=== PATIENT | female | born 1980 | race Caucasian/White ===

== ENCOUNTER → 2018-02-06 14:21 | Outpatient (CLI) | payer BC, SELFPAY ==
--- NOTE | 2018-02-06 14:26 | CT_ITS ---
STUDY: CT SOFT TISSUE NECK WITH CONTRAST REASON FOR EXAM: Female, 37 years old. Left subclavian mass RADIATION DOSAGE (If Supplied By Facility): CTDIvol = ( 21.37 ) mGy, DLP = ( 619.00 ) mGycm TECHNIQUE: The patient was scanned in a multi-detector CT scanner. High resolution transaxial imaging was performed following intravenous administration of 100mL ml of Isovue 300 contrast material. Sagittal and coronal images were reconstructed. Individualized dose optimization techniques were used for this CT. COMPARISON: None. FINDINGS: Normal bilateral parotid glands. 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 Normal bilateral parapharyngeal spaces. Normal bilateral carotid spaces. Normal bilateral sublingual and submandibular glands and spaces. Normal visualized nasopharynx. Normal retropharyngeal space. Normal perivertebral space. Normal visualized bilateral faucial tonsils. The visualized tongue, tongue base and oropharynx are normal. The visualized cervical lymph nodes (levels I-) are within normal size limits, and maintain normal morphology. There is no demonstrated solid or cystic mass lesion. There is no abnormal contrast enhancement. Normal epiglottis, bilateral vallecula and hypopharynx. The pre-epiglottic and paraglottic adipose spaces are normal. Normal visualized bilateral piriform sinuses, aryepiglottic folds, vocal cords, and arytenoid-cricoid articulations. Normal subglottic trachea. Normal bilateral lobes of the thyroid gland. Normal visualized pulmonary apices. Normal visualized paranasal sinuses. Normal visualized cervical spine. CT/Soft Tissue Neck WITH Contrast IMPRESSION: No evidence of neck mass or adenopathy. Electronically Signed: Juan Carlos Mejia MD at 4:16 EST Tel , Service support ,
--- OUTSIDE RECORDS SUMMARY | 2018-05-13 05:48 | XMS RPT_ITS | Continuity of Care Document ---
:1980 Author Organization [facility] Address [address] [facility] [address] [place] [address] Phone Care Team Providers Name Role Phone Breonna Weller CNP Unavailable Berkley Riley Unavailable Unavailable Unavailable Unavailable Problems Name Dates Details Anxiety (F41.9, 300.00) Status: Active BMI 40.0-44.9, adult (Z68.41, V85.41) Status: Active Fatigue (R53.83, 780.79) Status: Active Goiter (E04.9, 240.9) Status: Active Headache (R51, 784.0) Status: Active Hyperlipidemia (E78.5, 272.4) Comments: [facility] and ldl high. eat fast foods. no egg and cheese. skim milk. not eat alot red meat. Status: Active Neck mass (R22.1, 784.2) Comments: left Status: Active Nonsmoker (Z78.9, V49.89) Status: Active Obesity, unspecified (E66.9, 278.00) Comments: talk about diet. get rid of calories in drink and fast food. eat lean protine lots veggies. talkabout 21 day purification. Status: Active Palpitations (R00.2, 785.1) Status: Active Physical exam, routine (Z00.00, V70.0) Comments: talk to her about need pap. talkabout stretching openning since virgin and not use tampons. 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, but does not see anyone Status: Active Medications Name Dates Details No current medications Active CELEXA, 20MG (Oral Tablet) 1 (one) Tablet daily for 0 days Quantity: 30 {Tablet} Refills: 6 Ordered:16-Apr-2010 JAIME Rodrigues Start : 17-Nov-2009 End : 16-Apr-2010 Inactive CIPRO, 500MG (Oral Tablet) 1 Tablet bid for 0 days Quantity: 14 {Tablet} Refills: 0 Ordered:02-Nov-2009 JAIME Rodrigues Start : 08-Sep-2009 Inactive FLEXERIL, 10MG (Oral Tablet) 1 Tablet tid prn for 0 days Quantity: 20 {Tablet} Refills: 0 Ordered:16-Apr-2010 JAIME Rodrigues Start : 02-Nov-2009 End : 16-Apr-2010 Inactive Allergies and Adverse Reactions Name Dates Details No Known Drug Allergies (Allergy) Status: Active Past Medical History Name Dates Details Calcium kidney stone (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 ? infection, ?urge incont. ? diabetic and glucose in urine. will cath and check postvoid residual. 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 Status: Active Smoking Status Name Dates Details Never smoker Vital Signs Date Test Result Details :27 Temperature 98.3 f Pulse 82 /min Comments: Pattern: Regular Respiration Rate 16 /min Comments: Pattern: Unlabored O2 SAT 99 % Comments: Room air BP Systolic 124 mm[Hg] Comments: Patient Position: Sitting; Cuff Location: Left Arm; Cuff Size: Standard BP Diastolic 86 mm[Hg] Comments: Patient Position: Sitting; Cuff Location: Left Arm; Cuff Size: Standard Weight 248 lb Height 64 in Body Mass Index Calculated 42.57 kg/m2 Body Surface Area Calculated 2.14 m2 :34 Temperature 97.6 f Comments: Method: Temporal Pulse 100 /min Comments: Pattern: Regular Respiration Rate 18 /min Comments: Pattern: Unlabored O2 SAT 98 % Comments: Room air BP Systolic 114 mm[Hg] Comments: Patient Position: Sitting; Cuff Location: Left Arm; Cuff Size: Large BP Diastolic 78 mm[Hg] Comments: Patient Position: Sitting; Cuff Location: Left Arm; Cuff Size: Large Weight 227 lb Height 64 in Body Mass Index Calculated 38.96 kg/m2 Body Surface Area Calculated 2.06 m2 :52 Temperature 98.3 f Pulse 96 /min Comments: Pattern: Regular Respiration Rate 16 /min Comments: Pattern: Unlabored BP Systolic 108 mm[Hg] Comments: Patient Position: Sitting; Cuff Location: Left Arm; Cuff Size: Large BP Diastolic 80 mm[Hg] Comments: Patient Position: Sitting; Cuff Location: Left Arm; Cuff Size: Large :40 Temperature 98.2 f Comments: Method: Oral Pulse 78 /min Comments: Pattern: Regular Respiration Rate 18 /min Comments: Pattern: Unlabored BP Systolic 114 mm[Hg] Comments: Patient Position: Sitting; Cuff Location: Left Arm; Cuff Size: Large BP Diastolic 76 mm[Hg] Comments: Patient Position: Sitting; Cuff Location: Left Arm; Cuff Size: Large Weight 218 lb :58 Temperature 97.6 f Comments: Method: Oral Pulse 76 /min Comments: Pattern: Regular Respiration Rate 18 /min Comments: Pattern: Unlabored BP Systolic 108 mm[Hg] Comments: Patient Position: Sitting; Cuff Location: Left Arm; Cuff Size: Standard BP Diastolic 74 mm[Hg] Comments: Patient Position: Sitting; Cuff Location: Left Arm; Cuff Size: Standard Weight 218 lb :46 Temperature 98.2 f Comments: Method: Oral Pulse 78 /min Comments: Pattern: Regular Respiration Rate 18 /min Comments: Pattern: Unlabored BP Systolic 118 mm[Hg] Comments: Patient Position: Sitting; Cuff Location: Left Arm; Cuff Size: Standard BP Diastolic 78 mm[Hg] Comments: Patient Position: Sitting; Cuff Location: Left Arm; Cuff Size: Standard Weight 218 lb :33 Temperature 98.2 f Comments: Method: Oral Pulse 72 /min Comments: Pattern: Regular Respiration Rate 18 /min Comments: Pattern: Unlabored BP Systolic 116 mm[Hg] Comments: Patient Position: Sitting; Cuff Location: Left Arm; Cuff Size: Standard BP Diastolic 78 mm[Hg] Comments: Patient Position: Sitting; Cuff Location: Left Arm; Cuff Size: Standard Weight 219 lb Results Date Description Value Details :22 Glucose (70260) Comments: today; PATIENT NOT FASTINGPERFORMED BY: [facility]It[facility] HospitalFletms0448 [facility] [id number] Glucose, Serum 76 mg/dL (Normal) Range: 65-99 :22 T4, FREE (THYROXINE) Comments: today; PATIENT NOT FASTINGPERFORMED BY: VerbalizeItMargaret [place] [id number] [facility] [id number] Information: [id number] ([id number]) T4,Free(Direct) 1.13 ng/dL (Normal) Range: 0.82-1.77 :22 TSH (41970) Comments: today; PATIENT NOT FASTINGPERFORMED BY: [facility] HospitalIyiavg8488 [facility] [id number] TSH 1.290 {uIU/mL} (Normal) Range: 0.450-4.500 :53 METABOLIC PANEL, COMPREHENSIVE Comments: PATIENT NOT FASTINGPERFORMED BY: [facility] [id number] [facility] [id number] (23154) ALT (SGPT) 16 [iU]/L (Normal) Range: 0-40 AST (SGOT) 19 [iU]/L (Normal) Range: 0-40 Alkaline Phosphatase, S 93 [iU]/L (Normal) Range: 25-150 Bilirubin, Total 0.8 mg/dL (Normal) Range: 0.0-1.2 A/G Ratio 1.3 (Normal) Range: 1.1-2.5 Globulin, Total 3.4 g/dL (Normal) Range: 1.5-4.5 Albumin, Serum 4.3 g/dL (Normal) Range: 3.5-5.5 Protein, Total, Serum 7.7 g/dL (Normal) Range: 6.0-8.5 Calcium, Serum 9.8 mg/dL (Normal) Range: 8.7-10.2 Carbon Dioxide, Total 21 mmol/L (Normal) Range: 20-32 Chloride, Serum 101 mmol/L (Normal) Range: 97-108 BUN/Creatinine Ratio 8 (Normal) Range: 8-27 Potassium, Serum 4.8 mmol/L (Normal) Range: 3.5-5.2 Sodium, Serum 140 mmol/L (Normal) Range: 135-145 eGFR AfricanAmerican >59 mL/min/1.73 Comments: Note: Persistent reduction for 3 months or more in an eGFR<60 mL/min/1.73 m2 defines CKD. Patients with eGFR values>/=60 mL/min/1.73 m2 may also have CKD if evidence of persistentproteinuria is (Normal) present. Additional information may be found [email or web address]. eGFR >59 mL/min/1.73 (Normal) Creatinine, Serum 0.85 mg/dL (Normal) Range: 0.57-1.00 BUN 7 mg/dL (Normal) Range: 5-26 Glucose, Serum 89 mg/dL (Normal) Range: 65-99 02-Nov-20098:53 CBC WITH MANUAL DIFF Comments: PATIENT NOT FASTINGPERFORMED BY: [facility]CoEast [facility] HospitalGqmqji4288 [facility] [id number] Information: [id number] ([id number]) Immature Grans (Abs) 0.0 {x10E3/uL} (Normal) Range: 0.0-0.1 Immature Granulocytes 0 % (Normal) Range: 0-1 Baso (Absolute) 0.0 {x10E3/uL} (Normal) Range: 0.0-0.2 Eos (Absolute) 0.2 {x10E3/uL} (Normal) Range: 0.0-0.4 Monocytes(Absolute) 0.6 {x10E3/uL} (Normal) Range: 0.1-1.0 Lymphs (Absolute) 2.2 {x10E3/uL} (Normal) Range: 0.7-4.5 Neutrophils (Absolute) 5.4 {x10E3/uL} (Normal) Range: 1.8-7.8 Basos 0 % (Normal) Range: 0-3 Eos 3 % (Normal) Range: 0-7 Lymphs 26 % (Normal) Range: 14-46 Monocytes 7 % (Normal) Range: 4-13 Neutrophils 64 % (Normal) Range: 40-74 MCHC 33.9 g/dL (Normal) Range: 32.0-36.0 Platelets 376 {x10E3/uL} (Normal) Range: 140-415 RDW 12.7 % (Normal) Range: 11.7-15.0 MCH 29.0 pg (Normal) Range: 27.0-34.0 MCV 86 fL (Normal) Range: 80-98 Hematocrit 41.6 % (Normal) Range: 34.0-44.0 Hemoglobin 14.1 g/dL (Normal) Range: 11.5-15.0 RBC 4.86 {x10E6/uL} (Normal) Range: 3.80-5.10 WBC 8.5 {x10E3/uL} (Normal) Range: 4.0-10.5 :53 TSH ([id number]) Comments: PATIENT NOT FASTINGPERFORMED BY: [facility]Co[facility] HospitalLjekij9352 [facility] [id number] TSH 1.510 {uIU/mL} (Normal) Range: 0.450-4.500 40-Vpx-964820:38 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 PELVIC ULTRASOUND - COMPLETE TECHNIQUE:Transabdominal and Transvaginal COMPARISON:None. FINDINGS:Normal urinary bladder contour, without focal or diffuse wal lthickening. There are no bladder calculi or intracystic masses. Normal uterine size, measuring 7.46 cm in maximum craniocaudaldimension. There are no myometrial masses. Normal endometrial thickness lilly suring 1.6 mm. Normal right ovary measuring 3.38 cm. There are no cystic or solidadnexal masses. Normal left ovary measuring 2.56 cm. There are no cystic or solidadnexal masses. There is no free fluid w ithin the pelvis. IMPRESSION:Normal exam as viewed. Reported By: DAPHNE VASQUEZ D.O. 53-Plt-510227:38 POST VOID RESIDUAL BLADDER Radiology Report See Note (Normal) Comments: Exam Number: [id number] CLINICAL:This is a 29-year-old female patient with history of urinaryfrequency. BLADDER ULTRASOUND TECHNIQUE:Multiple views of the lateral and third post void imaging wasperformed as well. COMPARISON:None. FINDINGS:Normally distended urinary bladder containing 157 cc. The postvoidbladder contains 109.1 cc. This is in keeping with a moderate postvoid residual. Normal bladder wal l with no focal or diffuse wall thickening ormass. No bladder calculi or intracystic masses. Normal pericystic structures with no pelvic masses or free fluid. IMPRESSION:Moderate amount of postvoid residual. Reported By: ILIA SNELL Plan of Care Name Dates Details Instructions BMI 40.0-44.9, adult : Follow up in 2 weeks Indication: BMI 40.0-44.9, adult Neck mass : Self breast exam Indication: Neck mass Nonsmoker : Eprescribed prescriptions (G8553) Indication: Nonsmoker Hyperlipidemia : High Cholesterol (Hypercholesterolemia) *: diet Indication: Hyperlipidemia Palpitations : *palpitation discusssion Indication: Palpitations Planned Observations CALCIFEDIOL (84343)Indication: SCLEROSIS, MULTIPLE (340.) On: :31 Request T4, FREE (THYROXINE) (23858)Indication: Neck mass On: :30 Request T3, FREE (TRIDOTHYRONINE) (59714)Indication: Neck mass On: :30 Request TSH ([id number])Indication: Neck mass On: :30 Request Lipid Panel (32886)Indication: Neck mass On: :30 Request Metabolic Panel, Comprehensive (10293)Indication: Neck mass On: :30 Request CBC & PLATELETS (AUTO) ([id number])Indication: Neck mass On: 5-Ube-879652:29 Request LIPID PANEL (04414)Indication: Hyperlipidemia On: 28-Oct-20148:09 Request Comments: in six months (approximately) URINE OLIVER CULTURE-IDENTIFICATN (47725)Indication: Urinary frequency On: 98-Kgb-633425:03 Request URINALYSIS (77867)Indication: Urinary frequency On: 59-Ozs-639631:02 Request Urinalysis, Office (30863)Indication: Urinary frequency On: 51-Eya-820126:39 Request Planned Encounters Medical; 2 Week FU - On: 10-Feb-2018 15:30 [facility] Nithin OBREGON, Breonna Weller CNP, Breonna Chappell Planned Procedures CT SOFT TISSUE NECK WO/W CON On: 30-Jan-2018 Intent ([id number])By: Breonna Weller CNP, CNP, Mary E TD VACCINE ADULT ([id number])By: Juan On: 28-Oct-2014 Intent Ghada DEGROOT Ear Irrigation (75107)By: Judd TERRAZAS, On: 20-Apr-2010 Intent Cathie Trent Comments: performed by melly without difficulty Wax CurettesBy: Ghada Martinez MD On: 16-Apr-2010 Intent Ear Irrigation (72997)By: Juan On: 16-Apr-2010 Intent Ghada DEGROOT Holter Moniter ([id number])By: Juan On: 02-Nov-2009 Intent Ghada DEGROOT EKG (00200)By: JAIME Rodrigues On: 02-Nov-2009 Intent Ultrasound - postvoid residualBy: On: 08-Sep-2009 Intent Ghada Martinez MD Ultrasound - PelvisBy: Juan DEGROOT, On: 08-Sep-2009 Intent Ghada Moore Comments: need to see postvoid residual and do rest of pelvis if can see. Instructions Name Dates Details Nonsmoker : How to access health information online Indication: Nonsmoker Nonsmoker : How to access health information online - Detail Indication: Nonsmoker Nonsmoker : Patient Instructions Indication: Nonsmoker Hyperlipidemia : How to access health information online Indication: Hyperlipidemia Hyperlipidemia : How to access health information online - Detail Indication: Hyperlipidemia Hyperlipidemia : Patient Instructions Indication: Hyperlipidemia Encounters Office Visit On: 30-Jan-2018 13:26 Encounter Reason: new patient female physical - Last seen more than 1 year ago. General health: feels well with minor complaints (lump on neck), has good energy level and is sleeping poorly (restless). The patient's appe End: 30-Jan-2018 14:33 tite is normal. Nutrition: inappropriate diet. Exercises 0 days per week. Sleeps on average 5 (5-6) hours per night. Normal bowel and bladder habits. Safety measures include appropriate use of safety be lts and home smoke detectors. There are no current emotional problems., [ADDITIONAL REASON] Lumps - The onset of the lumps has been acute. Note for Lumps: left side of ne ck. this has been here for couple months, not wt loss has wt gain. Occasionally has pain, Encounter Diagnosis: Nonsmoker, BMI 40.0-44.9, adult, SCLEROSIS, MULTIPLE (340.), Neck mass [facility] Office Visit On: 28-Oct-2014 7:34 Encounter Reason: Physical female exam - Last seen more than 1 year ago. General health: feels well with minor complaints and has decreased energy level. The patient's appetite is normal. Nutrition: normal/adequate. Exer End: 28-Oct-2014 8:12 cises 1 days per week. Sleeps on average 5 hours per night. Normal bowel and bladder habits. Safety measures include appropriate use of safety belts and home smoke detectors. There are no current emotio nal problems. screening, Pap smear (has never had one ) and screening, visual acuity (wears glasses over 3 years ago ).Encounter Diagnosis: Hyperlipidemia, PHYSICAL EXAM, ROUTINE (V70.0), Obesity,unspecified (278.00), Goiter [facility] Office Visit On: 20-Apr-2010 7:48 Encounter Reason: Follow up acute care visit - The patient feels the same. Patient has been compliant with instructions. Current medication use: no side effects and compliant with dosing regimen. Patient sleeps 4 hours p End: 20-Apr-2010 8:18 er night. The medical issues the patient is following up for include All identified problems below and other (cerumen impaction in right ear). Note for Follow up acute care visit: Pt was in friday and seen DB for this and was unable to get the impaction out so pt was instructed to use debrox and come back in today to see if we can get it out. Pt states its starting to bother her now, discomfort.Encounter Diagnosis: Cerumen impaction (380.4) [facility] Office Visit On: 16-Apr-2010 9:40 Encounter Reason: Flu like symptoms - The onset of the flu like symptoms has been acute and they have been occurring in an intermittent pattern for 4 days. The course has been constant. The flu like symptoms are described as mild. End: 16-Apr-2010 10:13 Encounter Diagnosis: Gastroenteritis (558.9), Dizziness(780.4), Cerumen impaction (380.4) [facility] Office Visit On: 17-Nov-2009 9:58 Encounter Reason: Follow up acute care visit - The patient feels the same. Patient has been compliant with instructions. Patient sleeps 7 hours per night. Impact of disease: emotional impact-mild. Nutrition: balanced End: 17-Nov-2009 10:38 t and supplemental vitamins. The medical issues the patient is following up for include other (palpatations headache and fatigue). Encounter Diagnosis: Anxiety (300.00), Palpitations(785.1), Headache (784.0) [facility] Office Visit On: 02-Nov-2009 7:46 Encounter Diagnosis: Palpitations(785.1), Headache (784.0), Fatigue (780.79) End: 02-Nov-2009 8:26 [facility] Phone Encounter On: 08-Sep-2009 16:00 [facility] End: 08-Sep-2009 16:02 Office Visit On: 08-Sep-2009 11:33 Encounter Reason: UTI - The urinary symptoms are described as painful urination ,frequency and flank pain. The symptoms have been constant. Encounter Diagnosis: Urinary frequency (788.41) End: 08-Sep-2009 13:03 [facility] Payers Malena COFFMAN/Kayden Saldivar; a guarantor
--- OUTSIDE RECORDS SUMMARY | 2018-05-13 05:48 | XMS RPT_ITS | Continuity of Care Document ---
:1980 Author Organization [facility] Address [address] [facility] [address] [place] [address] Phone Care Team Providers Name Role Phone Breonna Weller CNP Unavailable Gravius, Dang Unavailable Unavailable Unavailable Unavailable Problems Name Dates Details Anxiety (F41.9, 300.00) Status: Active BMI 40.0-44.9, adult (Z68.41, V85.41) Status: Active Fatigue (R53.83, 780.79) Status: Active Goiter (E04.9, 240.9) Status: Active Headache (R51, 784.0) Status: Active Hyperlipidemia (E78.5, 272.4) Comments: [facility] and ldl high. eat fast foods. no egg and cheese. skim milk. not eat alot red meat.Need choles med but not until D comes up more or will get cramps, Status: Active Low vitamin D level (R79.89, 790.6) Status: Active Neck mass (R22.1, 784.2) Comments: CT done on the soft tissue is was read as normal Status: Active Nonsmoker (Z78.9, V49.89) Status: Active [...] but does not see anyone Status: Active Sore throat (J02.9, 462) Status: Active Tachycardia (R00.0, 785.0) Status: Active Viral illness (B34.9, 079.99) Comments: will follow up in 3 days, off work, Status: Active Medications Name Dates Details No current medications Active Vitamin D3 Ultra Potency 74200 UNIT Oral Tablet 1 (one) Tablet daily for 0 days Quantity: 30 {Tablet} Refills: 0 Ordered:10-Feb-2018 Nithin OBREGON, Breonna De La Cruz CNP, Sailaja Start : 10-Feb-2018 Active CELEXA, 20MG (Oral Tablet) 1 (one) [...] Procedure Dates Details TDAP VACCINE >7 IM (90343) Date: 28-Oct-2014 Completed 28-Oct-2014 Date Value Details 06-Feb-2018 Soft Tissue Neck WITH Contrast Result: Comments: See Note; NOTES: [facility] Imaging Services [address] [place] [address] Soft Tissue Neck WITH Contrast MR#: [id number] Acct: [id number] Name: CHANDA SALDIVAR ep #: [id number] : 1980 F 37 From: Juan Carlos Mejia MD PCP: Breonna eWller NP Status: REG CLI Study: Soft Tissue Neck WITH Contrast Date of Exam: 02/06/18 Exam# [id number] Ordering Dr: Breonna Weller TARIFF INSPECTOR-C STUDY: CT SOFT TISSUE NECK WITH CONTRAST REASON FOR EXAM: Female, 37 years old. Left subclavian mass RADIATION DOSAGE (If Supplied By Facility): CTDIvol = ( 21.37 ) mGy, DLP = ( 619.00 ) mGycm TECHNIQUE: The patient was scanned in a multi-detector CT scanner. High resolution transaxial imaging was performed following intravenous administration of 100mL ml of Isovue 300 contrast material. Sag ittal and coronal images were reconstructed. Individualized dose optimization techniques were used for this CT. COMPARISON: None. FINDINGS: Normal bilateral paroti d glands. 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 Normal bilateral parapharyngeal spaces. Normal bilateral carotid spaces. Normal bilateral sublingual and submandibular glands and spaces. Normal visualize d nasopharynx. Normal retropharyngeal space. Normal perivertebral space. Normal visualized bilateral faucial tonsils. The visualized tongue, tongue base and oropharynx are normal. The visualized cervi lino lymph nodes (levels I-) are within normal size limits, and maintain normal morphology. There is no demonstrated solid or cystic mass lesion. There is no abnormal contrast enhancement. Normal epig lottis, bilateral vallecula and hypopharynx. The pre-epiglottic and paraglottic adipose spaces are normal. Normal visualized bilateral piriform sinuses, aryepiglottic folds, vocal cords, and arytenoid-c ricoid articulations. Normal subglottic trachea. Normal bilateral lobes of the thyroid gland. Normal visualized pulmonary apices. Normal visualized paranasal sinuses. Normal visualized cervical spine. CT/Soft Tissue Neck WITH Contrast IMPRESSION: No evidence of neck mass or adenopathy. Electronically Signed: Juan Carlos Mejia MD a t 4:16 EST Tel , Service support , CC: Breonna Weller NP Tool Analyst: Signed Immunization Name Dates Details Tdap (7 years [...] smoker Vital Signs Date Test Result Details :17 Temperature 97 f Comments: Method: Temporal Pulse 128 /min Comments: Pattern: Regular Respiration Rate 16 /min Comments: Pattern: Unlabored O2 SAT 98 % Comments: Room air BP Systolic 110 mm[Hg] Comments: Patient Position: Sitting; Cuff Location: Left Arm; Cuff Size: Standard BP Diastolic 84 mm[Hg] Comments: Patient Position: Sitting; Cuff Location: Left Arm; Cuff Size: Standard Weight 248 lb Height 64 in Body Mass Index Calculated 42.57 kg/m2 Body Surface Area Calculated 2.14 m2 :27 Temperature 98.3 f Pulse 82 /min [...] 219 lb Results Date Description Value Details :06 CALCIFEDIOL (88959) Comments: PATIENT WAS FASTINGPERFORMED BY: [place] [id number] Vitamin D, 25-Hydroxy 6.8 ng/mL (Abnormal) Range: 30.0-100.0 Comments: Vitamin D deficiency has been defined by the [place] and an Endocrine Society practice guideline as alevel of serum 25-OH vitamin D less than 20 ng/mL (1,2).The Endocrine Society went on to further define vitamin Dinsufficiency as a level between 21 and 29 ng/mL (2).1. IOM ([place] [employer]). 2010. Dietary reference intakes for calcium and D. [place]: The National Academies Press.2. Angela MF, Janey HARLEY, Warren WILEY, et al. Evaluation, treatment, and prevention of vitamin D deficiency: an Endocrine Society clinical practice guideline. JCEM. 2010; 96(7):1911-30. :06 T4, FREE (THYROXINE) (04356) Comments: PATIENT WAS FASTINGPERFORMED BY: [employer] [place] [id number] T4,Free(Direct) 1.25 ng/dL (Normal) Range: 0.82-1.77 :06 T3, FREE (TRIDOTHYRONINE) (74334) Comments: PATIENT WAS FASTINGPERFORMED BY: [employer]Dublin [place] [id number] Triiodothyronine (T3), Free 2.5 pg/mL (Normal) Range: 2.0-4.4 :06 TSH (22388) Comments: PATIENT WAS FASTINGPERFORMED BY: [facility] [facility] [id number] TSH 0.877 {uIU/mL} (Normal) Range: 0.450-4.500 :06 Lipid Panel (52630) Comments: PATIENT WAS FASTINGPERFORMED BY: [facility] [facility] [id number] LDL/HDL Ratio 5.5 {ratio} (Abnormal) Range: 0.0-3.2 Comments: LDL/HDL Ratio Men Women 1/2 Avg.Risk 1.0 1.5 Av g.Risk 3.6 3.2 2X Avg.Risk 6.2 5.0 3X Avg.Risk 8.0 6.1 Comment: LDLCOM (Normal) Comments: Possible Familial Hypercholesterolemia. FH should be suspected whenfasting LDL cholesterol is above 189 mg/dL or non-HDL cholesterolis above 219 mg/dL. A family history of high cholesterol and heartdise ase in 1st degree relatives should be collected. J Clin Zsmcxms0727;5:133-140 LDL Cholesterol Calc 191 mg/dL (Abnormal) Range: 0-99 VLDL Cholesterol Lino 43 mg/dL (Abnormal) Range: 5-40 HDL Cholesterol 35 mg/dL (Abnormal) Triglycerides 213 mg/dL (Abnormal) Range: 0-149 Cholesterol, Total 269 mg/dL (Abnormal) Range: 100-199 :06 Metabolic Panel, Comprehensive Comments: PATIENT WAS FASTINGPERFORMED BY: [facility] [facility] [id number] (18814) ALT (SGPT) 21 [iU]/L (Normal) Range: 0-32 AST (SGOT) 23 [iU]/L (Normal) Range: 0-40 Alkaline Phosphatase 75 [iU]/L (Normal) Range: 39-117 Bilirubin, Total 0.4 mg/dL (Normal) Range: 0.0-1.2 A/G Ratio 1.4 (Normal) Range: 1.2-2.2 Globulin, Total 3.1 g/dL (Normal) Range: 1.5-4.5 Albumin 4.3 g/dL (Normal) Range: 3.5-5.5 Protein, Total 7.4 g/dL (Normal) Range: 6.0-8.5 Calcium 9.0 mg/dL (Normal) Range: 8.7-10.2 Carbon Dioxide, Total 21 mmol/L (Normal) Range: 20-29 Chloride 101 mmol/L (Normal) Range: 96-106 Potassium 4.5 mmol/L (Normal) Range: 3.5-5.2 Sodium 138 mmol/L (Normal) Range: 134-144 BUN/Creatinine Ratio 12 (Normal) Range: 9-23 eGFR If Africn Am 121 mL/min/1.73 (Normal) eGFR If NonAfricn Am 105 mL/min/1.73 (Normal) Creatinine 0.74 mg/dL (Normal) Range: 0.57-1.00 BUN 9 mg/dL (Normal) Range: 6-20 Glucose 80 mg/dL (Normal) Range: 65-99 4-Kxw-339309:06 CBC & PLATELETS (AUTO) (18232) Comments: PATIENT WAS FASTINGPERFORMED BY: [facility]Car[facility] [id number] Platelets 442 {x10E3/uL} (Abnormal) Range: 150-379 RDW 14.1 % (Normal) Range: 12.3-15.4 MCHC 33.8 g/dL (Normal) Range: 31.5-35.7 MCH 27.4 pg (Normal) Range: 26.6-33.0 MCV 81 fL (Normal) Range: 79-97 Hematocrit 36.1 % (Normal) Range: 34.0-46.6 Hemoglobin 12.2 g/dL (Normal) Range: 11.1-15.9 RBC 4.45 {x10E6/uL} (Normal) Range: 3.77-5.28 WBC 9.3 {x10E3/uL} (Normal) Range: 3.4-10.8 :22 Glucose (66503) Comments: today; PATIENT NOT FASTINGPERFORMED BY: RFMicronLea Regional Medical CenterGbhqvs6431 ImmuneWorks [facility] HospitalCap[facility]allyCar[facility] [id number] Glucose, Serum 76 mg/dL (Normal) Range: 65-99 :22 T4, FREE (THYROXINE) Comments: today; PATIENT NOT FASTINGPERFORMED BY: [facility] [facility] [id number] Information: [id number] (44564) T4,Free(Direct) 1.13 ng/dL (Normal) Range: 0.82-1.77 :22 TSH (54791) Comments: today; PATIENT NOT FASTINGPERFORMED BY: [facility] [facility] [id number] TSH 1.290 {uIU/mL} (Normal) Range: 0.450-4.500 :53 METABOLIC PANEL, COMPREHENSIVE Comments: PATIENT NOT FASTINGPERFORMED BY: [facility] [facility] [id number] (18677) ALT (SGPT) 16 [iU]/L (Normal) Range: 0-40 [...] MANUAL DIFF Comments: PATIENT NOT FASTINGPERFORMED BY: MARCIE [facility] Sfmrat[address] [facility] [id number] Information: [id number] (83086) Immature Grans (Abs) 0.0 {x10E3/uL} (Normal) Range: [...] 8.5 {x10E3/uL} (Normal) Range: 4.0-10.5 :53 TSH (36170) Comments: PATIENT NOT FASTINGPERFORMED BY: MARCIE [facility] Boeuhz[address] [facility] [id number] TSH 1.510 {uIU/mL} (Normal) Range: 0.450-4.500 :38 PELVIC TARIFF INSPECTOR WITH ARTERIAL FLOW Radiology Report See Note (Normal) Comments: Exam Number: [id number] CLINICAL:Pelvic pain. PELVIC ULTRASOUND - COMPLETE TECHNIQUE:Transabdominal [...] as viewed. Reported By: DAPHNE VASQUEZ D.O. :38 POST VOID RESIDUAL BLADDER Radiology Report See Note (Normal) Comments: Exam Number: [id number] CLINICAL:This is a 29-year-old female patient with [...] Plan of Care Name Dates Details Instructions Nonsmoker : Follow up tomorrow, as needed Indication: Nonsmoker Neck mass : Reviewed Lab Indication: Neck mass Nonsmoker : Eprescribed prescriptions (G8553) Indication: Nonsmoker BMI 40.0-44.9, adult : Follow up in 2 weeks Indication: BMI 40.0-44.9, adult Neck mass : Self breast exam Indication: Neck mass Nonsmoker : Eprescribed prescriptions (G8553) Indication: Nonsmoker Hyperlipidemia : High Cholesterol (Hypercholesterolemia) *: diet Indication: Hyperlipidemia Palpitations : *palpitation discusssion Indication: Palpitations Planned Observations Metabolic Panel, Comprehensive (41634)Indication: Hyperlipidemia On: 57-Ezw-256765:23 Request LIPID PANEL (81849)Indication: Hyperlipidemia On: 37-Ylh-889724:21 Request CALCIFEDIOL (98799)Indication: Neck mass On: 63-Mgc-389127:19 Request CALCIFEDIOL (85073)Indication: Low vitamin D level On: 30-Yhc-019817:25 Request LIPID PANEL (84862)Indication: Hyperlipidemia On: 89-Xbe-194953:24 Request Influenza A&B Viral Culture (92807)Indication: Sore throat On: 74-Ncx-688898:32 Request Rapid Flu (25136 x 2)Indication: Sore throat On: 08-Clc-079300:13 Request Rapid Strep Test, Office (63840)Indication: Sore throat On: 32-Obd-139744:12 Request LIPID PANEL (56863)Indication: Hyperlipidemia On: :09 Request Comments: in six months (approximately) URINE OLIVER CULTURE-IDENTIFICATN (37685)Indication: Urinary frequency On: :03 Request URINALYSIS (25956)Indication: Urinary frequency On: :02 Request Urinalysis, Office (37575)Indication: Urinary frequency On: 09-Ymt-596105:39 Request Planned Procedures ELECTROCARDIOGRAM, COMPLETE (ECG) On: 10-Feb-2018 Intent (96187)By: Breonna Weller CNP, CNP, Comments: sinus tach Sailaja CT NECK W CON (25528)By: Nithin OBREGON, On: 05-Feb-2018 Intent Breonna Sanchez CNP CT SOFT TISSUE NECK WO/W CON (23535)By: On: 30-Jan-2018 Intent Breonna Weller CNP, CNP, Mary E TD VACCINE ADULT (72841)By: Juan DEGROOT, On: 28-Oct-2014 Intent Ghada Moore Ear Irrigation (13708)By: Judd TERRAZAS, On: 20-Apr-2010 Intent Cathie Trent Comments: performed by melly without difficulty Wax CurettesBy: Ghada Martinez MD On: 16-Apr-2010 Intent Ear Irrigation (93376)By: Juan DEGROOT, On: 16-Apr-2010 Intent Ghada Moore Holter Moniter (53614)By: Juan DEGROOT, On: 02-Nov-2009 Intent Ghada Moore EKG (52373)By: JAIME Rodrigues On: 02-Nov-2009 Intent Ultrasound - postvoid residualBy: On: 08-Sep-2009 Intent Ghada Martinez MD Ultrasound - PelvisBy: Ghada Martinez MD On: 08-Sep-2009 Intent Teresa Comments: need to see postvoid residual and do rest of pelvis if can see. Instructions Name Dates Details Nonsmoker : How to access health information online Indication: Nonsmoker Nonsmoker : How to access health information online - Detail Indication: Nonsmoker Nonsmoker : Patient Instructions Indication: Nonsmoker Nonsmoker : How to access health information online Indication: Nonsmoker Nonsmoker : How to access health information online - Detail Indication: Nonsmoker Nonsmoker : Patient Instructions Indication: Nonsmoker Hyperlipidemia : How to access health information online Indication: Hyperlipidemia Hyperlipidemia : How to access health information online - Detail Indication: Hyperlipidemia Hyperlipidemia : Patient Instructions Indication: Hyperlipidemia Encounters Office Visit On: 10-Feb-2018 15:14 Encounter Reason: Follow up tests - Diagnostic tests include CT scan (neck). Date: (02/06)., [ADDITIONAL REASON] Cold Symptoms - Symptoms include sneezing, nasal congestion, runny nose, postnas End: 10-Feb-2018 16:48 al drainage, sore throat, dry cough, facial pressure and headache. Onset was day(s) ago (2- worse in 24 hours). Note for Cold symptoms: cold last 24 hrs and joint painEars stuffed up Encounter Diagnosis: BMI 40.0-44.9, adult, Nonsmoker, SCLEROSIS, MULTIPLE (340.), Sore throat, Neck mass, Low vitamin D level, Hyperlipidemia, Tachycardia, Viral illness [facility] Annotation/Addendum On: 05-Feb-2018 11:36 Encounter Diagnosis: Neck mass End: 05-Feb-2018 11:39 [facility] Office Visit On: 30-Jan-2018 13:26 Encounter Reason: [...]
--- OUTSIDE RECORDS SUMMARY | 2018-05-13 05:48 | XMS RPT_ITS ---
:1980 Author Organization [facility] Care Team Providers Name Role Phone Breonna Weller Attending Unavailable Nithin, Breonna Consulting Unavailable Nithin, Breonna Referring Unavailable Breonna Weller Attending Unavailable Nithin, Breonna Referring Unavailable Breonna Weller Primary Care Unavailable Purpose Purpose PROBLEMS PROBLEMS No Problem Records FoundPROCEDURES PROCEDURES No Procedure Records FoundVITAL SIGNS VITAL SIGNS No Vital Signs Records FoundRESULTS RESULTS SOFT TISSUE NECK WITH Observed: 02/06/2018 Status: F Source: ATIF CONTRAST 2:27 PM [facility] Imaging Services [address] [place] [address] Soft Tissue Neck WITH Contrast MR#: [id number] Acct: [id number] Name: ADOLFO SALDIVAR Rep #: [id number] : 1980 F 37 From: Juan Carlos Mejia MD PCP: Breonna Weller NP Status: REG CLI Study: Soft Tissue Neck WITH Contrast Date of Exam: 02/06/18 Exam# [id number] Ordering Dr: Breonna Weller CAFETERIA TEAM LEADER-C STUDY: CT SOFT TISSUE NECK WITH CONTRAST REASON FOR EXAM: Female, 37 years old. Left subclavian mass RADIATION DOSAGE (If Supplied By Facility): CTDIvol = ( 21.37 ) mGy, DLP = ( 619.00 ) mGycm TECHNIQUE: The patient was scanned in a multi-detector CT scanner. High resolution transaxial imaging was performed following intravenous administration of 100mL ml of Isovue 300 contrast material. Sagittal and coronal images were reconstructed. Individualized dose optimization techniques were used for this CT. COMPARISON: None. FINDINGS: Normal bilateral parotid glands. Normal bilateral kitchen helper spaces. Normal bilateral parapharyngeal spaces. Normal bilateral carotid spaces. Normal bilateral sublingual and submandibular glands and spaces. Normal visualized nasopharynx. Normal retropharyngeal space. Normal perivertebral space. Normal visualized bilateral faucial tonsils. The visualized tongue, tongue base and oropharynx are normal. The visualized cervical lymph nodes (levels I-) are within normal size limits, and maintain normal morphology. There is no demonstrated solid or cystic mass lesion. There is no abnormal contrast enhancement. Normal epiglottis, bilateral vallecula and hypopharynx. The pre-epiglottic and paraglottic adipose spaces are normal. Normal visualized bilateral piriform sinuses, aryepiglottic folds, vocal cords, and arytenoid-cricoid articulations. Normal subglottic trachea. Normal bilateral lobes of the thyroid gland. Normal visualized pulmonary apices. Normal visualized paranasal sinuses. Normal visualized cervical spine. CT/Soft Tissue Neck WITH Contrast IMPRESSION: No evidence of neck mass or adenopathy. Electronically Signed: Juan Carlos Mejia MD at 4:16 EST Tel , Service support , CC: Breonna Weller NP Sueding And Buffing Machine Operator: Signed ALLERGIES ALLERGIES No Allergies Records FoundENCOUNTERS ENCOUNTERS ADMIT/DISCHARGE ACCOUNT ADMITTING ENCOUNTER LOCATION SOURCE NUMBER CLASS 02/11/2018 [id number] Ambulatory Building:[facility] [place] Practices Repository 02/06/2018 [id number] Ambulatory [place] [facility] [address] [facility] ing:CT Repository FUNCTIONAL STATUS FUNCTIONAL STATUS No Functional Status Records FoundEQUIPMENT EQUIPMENT No Equipment Records FoundPAYERS PAYERS ENCOUNTER GUARANTOR PAYER SUBSCRIBER SOURCE 02/11/2018 Adolfo Moore Primary Adolfo Moore [place] Practices PolLanieOB: Insurance:Malena AlcocerOB: Repository [id number] [facility]: [id number] [address] [id number] [address] [place], [place] Date:[id number] [place], [place] [address]Duf: ([phone]) Name:[facility] [address] [phone]: () [id number], [place] [phone] () [id number]: 02/11/2018 Secondary Adolfo M [facility] Practices Insurance:[place] PolovichDOB: Repository [facility] Number: [id number] 5 Emalene Date: - [place], [place] 6988-06-94Puwl [address]Qxz: ([phone]) Name:[facility] [phone] () [id number], [place] [id number]: 02/06/2018 ADOLFO M Primary ADOLFO M [place] [id number] Insurance:ANTHEMPolic POLOVICHDOB: Community EMALENE y Number: [id number] [id number] Repository [address]Opb: (330) Date:[id number] [phone] () [id number], [place] [address]CM: 02/06/2018 Secondary NOT GIVENUNK [place] Insurance:SELF PAY [facility]: Effective Repository Date:2018-01-30 SOCIAL HISTORY SOCIAL HISTORY No Social History Records FoundFAMILY HISTORY FAMILY HISTORY No Family History Records FoundADVANCE DIRECTIVES ADVANCE DIRECTIVES No Advanced Directives Records FoundINFORMATION SOURCE INFORMATION SOURCE DATE CREATED AUTHOR AUTHOR'S ORGANIZATION 03/18/2018 [facility]
--- OUTSIDE RECORDS SUMMARY | 2018-05-13 05:48 | XMS RPT_ITS | Continuity of Care Document ---
:1980 Author Organization [facility] Address [address] [place] [address] Phone Care Team Providers Name Role Phone Breonna Weller CNP Unavailable Berkley Riley Unavailable Unavailable Romeo Hill Unavailable Unavailable Unavailable Unavailable Problems Name Dates [...] Procedure Dates Details TDAP VACCINE >7 IM (42777) Date: 28-Oct-2014 Completed 28-Oct-2014 Immunization Name Dates [...] Results Date Description Value Details :06 CALCIFEDIOL (37702) Comments: PATIENT WAS FASTINGPERFORMED BY: [facility] [id number] Vitamin D, 25-Hydroxy 6.8 ng/mL (Abnormal) Range: 30.0-100.0 Comments: Vitamin D deficiency has been defined by the [place] [facility] and an Endocrine Society practice guideline as alevel of serum 25-OH vitamin D less than 20 ng/mL (1,2).The Endocrine Society went on to further define vitamin Dinsufficiency as a level between 21 and 29 ng/mL (2).1. IOM ([place] of Medicine). 2010. Dietary reference intakes for calcium and D. [place]: The National Academies Press.2. Angela MF, Janey [place], Warren WILEY, et al. Evaluation, treatment, and prevention of vitamin D deficiency: an Endocrine Society clinical practice guideline. JCEM. 2010; 96(7):1911-30. :06 T4, FREE (THYROXINE) (37572) Comments: PATIENT WAS FASTINGPERFORMED BY: [employer] [id number] [id number] T4,Free(Direct) 1.25 ng/dL (Normal) Range: 0.82-1.77 :06 T3, FREE (TRIDOTHYRONINE) (39732) Comments: PATIENT WAS FASTINGPERFORMED BY: [facility] [id number] Triiodothyronine (T3), Free 2.5 pg/mL (Normal) Range: 2.0-4.4 :06 TSH (27035) Comments: PATIENT WAS FASTINGPERFORMED BY: [facility] [id number] TSH 0.877 {uIU/mL} (Normal) Range: 0.450-4.500 :06 Lipid Panel (26971) Comments: PATIENT WAS FASTINGPERFORMED BY: [facility] [id number] LDL/HDL Ratio 5.5 {ratio} (Abnormal) Range: 0.0-3.2 [...] degree relatives should be collected. J Clin Wtmpaso4967;5:133-140 LDL Cholesterol Calc 191 mg/dL (Abnormal) Range: 0-99 VLDL Cholesterol Maxwell 43 mg/dL (Abnormal) Range: 5-40 HDL Cholesterol 35 mg/dL (Abnormal) Triglycerides 213 mg/dL (Abnormal) Range: 0-149 Cholesterol, Total 269 mg/dL (Abnormal) Range: 100-199 :06 Metabolic Panel, Comprehensive Comments: PATIENT WAS FASTINGPERFORMED BY: [facility] [id number] (77893) ALT (SGPT) 21 [iU]/L (Normal) Range: 0-32 [...] 6-20 Glucose 80 mg/dL (Normal) Range: 65-99 6-Esq-072317:06 CBC & PLATELETS (AUTO) (96911) Comments: PATIENT WAS FASTINGPERFORMED BY: [facility] [id number] Platelets 442 {x10E3/uL} (Abnormal) Range: 150-379 RDW 14.1 % (Normal) Range: 12.3-15.4 MCHC 33.8 g/dL (Normal) Range: 31.5-35.7 MCH 27.4 pg (Normal) Range: 26.6-33.0 MCV 81 fL (Normal) Range: 79-97 Hematocrit 36.1 % (Normal) Range: 34.0-46.6 Hemoglobin 12.2 g/dL (Normal) Range: 11.1-15.9 RBC 4.45 {x10E6/uL} (Normal) Range: 3.77-5.28 WBC 9.3 {x10E3/uL} (Normal) Range: 3.4-10.8 :22 Glucose (31370) Comments: today; PATIENT NOT FASTINGPERFORMED BY: [facility] [id number] Glucose, Serum 76 mg/dL (Normal) Range: 65-99 :22 T4, FREE (THYROXINE) Comments: today; PATIENT NOT FASTINGPERFORMED BY: [facility] [id number] Information: [id number] (75485) T4,Free(Direct) 1.13 ng/dL (Normal) Range: 0.82-1.77 :22 TSH (19458) Comments: today; PATIENT NOT FASTINGPERFORMED BY: [facility] [id number] TSH 1.290 {uIU/mL} (Normal) Range: 0.450-4.500 :53 METABOLIC PANEL, COMPREHENSIVE Comments: PATIENT NOT FASTINGPERFORMED BY: [facility] [id number] (66461) ALT (SGPT) 16 [iU]/L (Normal) Range: 0-40 [...] MANUAL DIFF Comments: PATIENT NOT FASTINGPERFORMED BY: [facility] [id number] Information: [id number] (16211) Immature Grans (Abs) 0.0 {x10E3/uL} (Normal) Range: [...] 8.5 {x10E3/uL} (Normal) Range: 4.0-10.5 :53 TSH (75347) Comments: PATIENT NOT FASTINGPERFORMED BY: [facility] [id number] TSH 1.510 {uIU/mL} (Normal) Range: 0.450-4.500 :38 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 PELVIC ULTRASOUND - COMPLETE TECHNIQUE:Transabdominal [...] Report See Note (Normal) Comments: Exam Number: [id number] CLINICAL:This is a 29-year-old female patient with [...] : *palpitation discusssion Indication: Palpitations Planned Observations LIPID PANEL (94681)Indication: Hyperlipidemia On: 28-Oct-20148:09 Request Comments: in six months (approximately) URINE OLIVRE CULTURE-IDENTIFICATN (23724)Indication: Urinary frequency On: 62-Jvz-786316:03 Request URINALYSIS (93812)Indication: Urinary frequency On: :02 Request Urinalysis, Office (58978)Indication: Urinary frequency On: 61-Uuk-211507:39 Request Planned Encounters Medical; 2 Week FU - On: 10-Feb-2018 15:30 [facility] Breonna Weller CNP, CNP, Mary E Planned Procedures CT NECK W CON ([id number])By: Nithin OBREGON, On: 05-Feb-2018 Intent Breonna Sanchez CNP CT SOFT TISSUE NECK WO/W CON On: 30-Jan-2018 Intent (43203)By: Breonna Weller CNP, CNP, Mary E TD VACCINE ADULT (73679)By: Juan On: 28-Oct-2014 Intent Ghada DEGROOT Ear Irrigation (34535)By: Judd TERRAZAS On: 20-Apr-2010 Intent Cathie A Comments: performed by melly without difficulty Wax CurettesBy: Ghada Martinez MD On: 16-Apr-2010 Intent Ear Irrigation (84752)By: Juan On: 16-Apr-2010 Intent Ghada DEGROOT Holter Moniter (43178)By: Juan On: 02-Nov-2009 Intent Ghada DEGROOT EKG (66344)By: JAIME Rodrigues On: 02-Nov-2009 Intent Ultrasound - [...] Hyperlipidemia : Patient Instructions Indication: Hyperlipidemia Encounters Annotation/Addendum On: 05-Feb-2018 11:36 Encounter Diagnosis: Neck [...] 13:03 [facility] Payers Malena COFFMAN/Kayden Sladivar; ivan guarantor
== END ==
PROVIDERS: Family Provider Nurse Practitioner; PCP Nurse Practitioner; Referring Provider Nurse Practitioner; Visit Provider Nurse Practitioner
DX: R22.1 Localized swelling, mass and lump, neck (principal)
CPT/HCPCS: 70491; Q9967